=== PATIENT | male | born 2000 | race Two or more races ===

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

== ENCOUNTER 2020-04-29 00:08 | Emergency (ER) | payer BC, MEDICAID ==
[~2020-04-29] VITALS: Ht 172.7 cm; Wt 72.6 kg
[~2020-04-29 00:08] MED LIST: IBUPROFEN600 MG ORAL; NKM
[2020-04-29 00:10] VITALS: BP 130/82
--- NOTE | 2020-04-29 00:24 | Emergency Room Report ---
History of Present Illness General Chief Complaint: Behavioral Complaint Source: Patient, EMS, Law Enforcement Present Illness HPI This is a 25-year-old male brought in as a Steven Durán. He refused to give his name to police and EMS. Here he told me his name is Gurdeep Reddy. He said he is 19 years old. He refused to give her date of or Social Security. Patient presents with suicidal thoughts. He is currently on a 5150 hold by police. He is homeless. He walked to the [employer] and asked them to shoot him. He said that he suicidal and want to be shot in the heart. He then laid down on the floor. He called 911. He is placed on a 5150 hold. Patient is not cooperative and will not give me any other information. Allergies: Coded Allergies: UNABLE TO ASSESS (Unverified , 04/29/20) COVID-19 Screening COVID-19 risk:Contact w/high r: No COVID-19 risk:Travel to affect: No Has patient experienced tristan: No COVID-19 Testing performed RESIDENTIAL TREATMENT STAFF: No Patient History Past Medical History: see triage record, old chart reviewed, unable to obtain Past Surgical History: unable to obtain Family History: unable to obtain Social History: lives alone Immunizations: other Reviewed Nursing Documentation: PMH: Agreed; PSxH: Agreed Nursing Documentation-PMH Past Medical History: No Stated History Hx Cardiac Problems: No - unable to obtain info, patient uncooperative. Hx Hypertension: No Hx Pacemaker: No Hx Asthma: No Hx COPD: No Hx Diabetes: No Hx Cancer: No Hx Gastrointestinal Problems: No Hx Dialysis: No History Of Psychiatric Problem: No Hx Neurological Problems: No Hx Cerebrovascular Accident: No Hx Seizures: No Review of Systems All Other Systems: limited - Patient is not cooperative Physical Exam Vital Signs Date Time Temp Pulse Resp B/P (MAP) Pulse Ox O2 Delivery O2 Flow Rate FiO2 04/29/20 00:02 99.1 86 16 130/82 (98) 99 Room Air Vitals normal Sp02 EP Interpretation: reviewed, normal General Appearance: alert/responsive, no apparent distress, non-toxic Head: normocephalic, atraumatic Eyes: PERRL, EOMI ENT: oropharynx normal Neck: supple/symm/no masses Respiratory: effort normal, no rhonchi, no wheezing Cardiovascular: no murmur, gallop, rub Gastrointestinal: non-tender, no mass, non-distended, no rebound/guarding, normal bowel sounds Musculoskeletal: gait & station normal Neurologic: oriented x3, sensory intact, motor strength/tone normal Psychiatric: other - Catatonic expression Skin: no rash, normal palpation Medical Decision Making Diagnostic Impression: Primary Impression: Suicidal behavior Qualified Codes: R46.89 - Other symptoms and signs involving appearance and behavior Additional Impressions: Behavioral disorder Major depression Qualified Codes: F32.2 - Major depressive disorder, single episode, severe without psychotic features ER Course Patient presents with depression and suicidal thoughts. He is medically cleared. He is currently on a 5150. Will attempt to transfer to a psychiatric facility. Last Vital Signs Date Time Temp Pulse Resp B/P (MAP) Pulse Ox O2 Delivery O2 Flow Rate FiO2 04/29/20 00:02 99.1 86 16 130/82 (98) 99 Room Air Status: improved Disposition: PSYCH HOSP/UNIT Condition: Stable Jeffrey Vizcarra MD Apr 29, 2020 00:23
[2020-04-29 01:02] LABS: BASOPHILS % (AUTO) 0.6 % (0.0-2.0); EOSINOPHILS % (AUTO) 0.6 % (0.0-3.0); HEMOGLOBIN 14.3 G/DL (14.2-18.0); LYMPHOCYTES % (AUTO) 14.1 % (20.0-45.0); MEAN CORPUSCULAR VOLUME 87 FL (80-99); MONOCYTES % (AUTO) 7.7 % (1.0-10.0); PLATELET COUNT 170 K/UL (150-450); RED BLOOD COUNT 4.36 M/UL (4.70-6.10); WHITE BLOOD COUNT 11.3 K/UL (4.8-10.8)
[2020-04-29 01:15] LABS: ANION GAP 12 mmol/L (5-15); BLOOD UREA NITROGEN 14 mg/dL (7-18); CALCIUM 9.1 MG/DL (8.5-10.1); CARBON DIOXIDE 26 MMOL/L (21-32); CHLORIDE 101 MMOL/L (98-107); CREATININE 1.3 MG/DL (0.55-1.30); POTASSIUM 3.4 MMOL/L (3.5-5.1); SODIUM 138 MMOL/L (136-145)
[2020-04-29 01:25] LABS: ALANINE AMINOTRANSFERASE 34 U/L (12-78); ALBUMIN 4.3 G/DL (3.4-5.0); ALBUMIN/GLOBULIN RATIO 1.4 (1.0-2.7); ALKALINE PHOSPHATASE 65 U/L (46-116); ASPARTATE AMINO TRANSFERASE 21 U/L (15-37); BILIRUBIN,TOTAL 4.4 MG/DL (0.2-1.0)
[2020-04-29 01:29] LABS: BILIRUBIN,DIRECT 0.2 MG/DL (0.0-0.3)
[2020-04-29 01:46] LABS: APPEARANCE,URINE CLEAR; BILIRUBIN, URINE 1+ (NEGATIVE); GLUCOSE, URINE (UA) NEGATIVE (NEGATIVE); KETONES,URINE 2+ (NEGATIVE); LEUKOCYTE ESTERASE ,URINE 1+ (NEGATIVE); NITRITE,URINE NEGATIVE (NEGATIVE); PH,URINE 5 (4.5-8.0); PROTEIN,URINE 2+ (NEGATIVE); UROBILINOGEN,URINE 1 MG/DL (0.0-1.0)
[2020-04-29 01:52] LABS: COLOR,URINE YELLOW
[2020-04-29 04:15] VITALS: BP 100/58
[2020-04-29 07:06] VITALS: BP 109/69
[2020-04-29 10:00] VITALS: BP 111/65
[2020-04-29] MEDS ORDERED: Haloperidol Decanoate (Long Acting) 50mg Inj IM ONE (12:15)
[2020-04-29 13:51] VITALS: BP 113/62
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
== END 2020-04-29 13:51 | disposition home or self-care (01) ==
LOC: EDBD 00:08 → MERGE 00:44 → EMR 00:44
DX: R45.851 Suicidal ideations (principal); F32.2 Major depressive disorder, single episode, severe without psychotic features; F91.9 Conduct disorder, unspecified
CPT/HCPCS: 36415; 80053; 80307; 81003; 82248; 85025; G0480; G0481; Z7502; 99285